=== PATIENT | female | born 1940 | race African-American/Black ===

== ENCOUNTER 2020-08-17 12:37 | Inpatient (IN) | payer MEDICARE, MEDICAID ==
[~2020-08-17] VITALS: Ht 160 cm; Wt 73.5 kg
[2020-08-17] MEDS ORDERED: ASPIRIN 81MG TABLET PO ONE (13:15)
[2020-08-17 14:54] LABS: BASOPHILS % 0.5 % (0.0-2.0); EOSINOPHILS % 3.4 % (0.0-5.0); HEMATOCRIT. 40.5 % (36.0-48.0); HEMOGLOBIN. 12.8 g/dL (12.0-16.0); MEAN CORPUSCULAR HEMOGLOBIN 29.5 pg (28.0-32.0); MONOCYTES % 11.7 % (2.0-8.0); NEUTROPHILS % 55.4 % (40.0-76.0); RED BLOOD CELL COUNT 4.35 mill/uL (4.2-5.4); RED CELL DISTRIBUTION WIDTH 15.5 % (11.6-14.6)
[2020-08-17 14:59] LABS: CHLORIDE 115 mEq/L (98-107)
[2020-08-17] MEDS ORDERED: NITROGLYCERIN 0.4MG TABLET SL SL PRN (15:30)
[2020-08-17 15:43] LABS: MEAN PLATELET VOLUME 8.8 fl (7.4-10.4); PLATELET 98 x1000/uL (130-400)
[2020-08-17 16:21] LABS: CLARITY URINE CLEAR (CLEAR); COLOR URINE YELLOW (YELLOW); KETONES URINE NEGATIVE (NEGATIVE); LEUKOCYTE ESTERASE URINE TRACE (NEGATIVE); NITRITE URINE POSITIVE (NEGATIVE); OCCULT BLOOD URINE TRACE (NEGATIVE); PROTEIN URINE NEGATIVE (NEGATIVE); SPECIFIC GRAVITY URINE 1.027 (1.005-1.030); UROBILINOGEN URINE 0.2 E.U./dL (0.2-1.0)
[2020-08-17] MEDS ORDERED: LEVOFLOXACIN 750MG PREMIX 150 ML IV ONE (16:45)
[2020-08-17] MEDS ORDERED: DIPHENHYDRAMINE 50MG/ML VIAL IV ONE (18:00)
[2020-08-17] MEDS ORDERED: SULFAMETHOXAZOLE/TRIMETHOPRIM 800/160MG TABLET PO ONE (18:00)
[2020-08-17] MEDS ORDERED: ONDANSETRON HCL 4MG/2ML INJ IV PRN (18:30)
[2020-08-17] MEDS: DOXYCYCLINE HYCLATE 100MG CAPSULE PO SCH (21:00)
[2020-08-17] MEDS ORDERED: HEPARIN 5000 UNITS/ML VIAL SUBCUT SCH (21:00)
[2020-08-17] MEDS: ACETAMINOPHEN 325MG TABLET PO PRN (21:30)
[2020-08-18] MEDS: TRAZODONE HCL 50MG TABLET PO PRN (02:00)
[2020-08-18 05:55] LABS: HEMOGLOBIN. 11.4 g/dL (12.0-16.0); MEAN CORPUSCULAR VOLUME 91.8 fL (81.0-99.0); MEAN PLATELET VOLUME 8.4 fl (7.4-10.4); PLATELET 138 x1000/uL (130-400); RED BLOOD CELL COUNT 3.81 mill/uL (4.2-5.4); RED CELL DISTRIBUTION WIDTH 14.8 % (11.6-14.6)
[2020-08-18 06:00] LABS: CHLORIDE 114 mEq/L (98-107)
[2020-08-18] MEDS ORDERED: SULFAMETHOXAZOLE/TRIMETHOPRIM 800/160MG TABLET PO SCH (09:00)
[2020-08-18] MEDS: DOXYCYCLINE HYCLATE 100MG CAPSULE PO SCH (09:59)
[2020-08-18 12:00] VITALS: BP 142/68
[2020-08-18 13:00] VITALS: BP 122/68
[2020-08-18] MEDS ORDERED: LORAZEPAM 0.5MG TABLET PO ONE (13:15)
[2020-08-18 13:16] LABS: PLATELET ESTIMATE NORMAL
[2020-08-18 16:00] VITALS: BP 122/74
[2020-08-18] MEDS ORDERED: TRAM100T34 MT (17:11)
[2020-08-18] MEDS ORDERED: FURO-151 MT (17:11)
[2020-08-18 20:00] VITALS: BP 127/79
[2020-08-18] MEDS: SULFAMETHOXAZOLE/TRIMETHOPRIM 800/160MG TABLET PO SCH (21:46)
[2020-08-18 22:19] VITALS: BP 135/74
[2020-08-19] VITALS (7 sets, daily range): BP systolic 115–137; BP diastolic 56–78
[2020-08-19] MEDS: TRAZODONE HCL 50MG TABLET PO PRN (00:17)
[2020-08-19] MEDS: ACETAMINOPHEN 325MG TABLET PO PRN ×2 (01:34→11:44)
[2020-08-19 07:52] LABS: CHLORIDE 112 mEq/L (98-107)
[2020-08-19 08:26] LABS: BASOPHILS % 0.7 % (0.0-2.0); EOSINOPHILS % 4.3 % (0.0-5.0); HEMATOCRIT. 38.1 % (36.0-48.0); HEMOGLOBIN. 12.2 g/dL (12.0-16.0); LYMPHOCYTES % 46.1 % (20.0-50.0); MEAN CORPUSCULAR HEMOGLOBIN 29.7 pg (28.0-32.0); MEAN CORPUSCULAR VOLUME 92.4 fL (81.0-99.0); MEAN PLATELET VOLUME 8.6 fl (7.4-10.4); MONOCYTES % 14.5 % (2.0-8.0); NEUTROPHILS % 34.4 % (40.0-76.0); PLATELET 142 x1000/uL (130-400); RED BLOOD CELL COUNT 4.12 mill/uL (4.2-5.4); RED CELL DISTRIBUTION WIDTH 15.1 % (11.6-14.6)
[2020-08-19] MEDS: SULFAMETHOXAZOLE/TRIMETHOPRIM 800/160MG TABLET PO SCH ×2 (08:40→20:37)
[2020-08-19] MEDS ORDERED: SULF1TAB44 PO (14:25)
[2020-08-19] MEDS: PNEUMOCOCCAL 23-VAL P-SAC VAC 0.5 ML IM ONE ×2 (15:00→18:25)
[2020-08-19] MEDS: INFLUENZA VACCINE 05/PF 0.5 ML VIAL IM ONE ×2 (15:00→18:24)
[2020-08-19] MEDS ORDERED: SODIUM POLYSTYRENE SULFONATE 15 G/60 ML BOT PO NR (15:30)
[2020-08-19] MEDS ORDERED: DOCU100T MT (15:35)
[2020-08-19] MEDS ORDERED: TRAM50TA3 MT (15:35)
[2020-08-19] MEDS ORDERED: SENN-257 MT (15:35)
[2020-08-19] MEDS ORDERED: FAMO40TA70 MT (15:35)
[2020-08-19] MEDS ORDERED: MOM MT (15:35)
[2020-08-19] MEDS ORDERED: MAGNESIUM HYDROXIDE 400MG/5ML 30ML UDC PO PRN (15:45)
[2020-08-19] MEDS ORDERED: SENNOSIDES/DOCUSATE SOD 8.6/50MG TABLET PO PRN (15:45)
[2020-08-19] MEDS ORDERED: BISACODYL 10MG SUPP PR PRN (15:45)
[2020-08-19] MEDS ORDERED: DOCUSATE SODIUM 100MG CAPSULE PO PRN (15:45)
[2020-08-19] MEDS ORDERED: MAGNESIUM CITRATE 300ML SOLUTION PO NR (16:00)
[2020-08-20] VITALS: BP 159/98
[2020-08-20] MEDS: TRAZODONE HCL 50MG TABLET PO PRN (01:25)
[2020-08-20 04:00] VITALS: BP 120/65
[2020-08-20 06:53] LABS: BASOPHILS % 0.5 % (0.0-2.0); EOSINOPHILS % 3.4 % (0.0-5.0); HEMATOCRIT. 36.7 % (36.0-48.0); LYMPHOCYTES % 41.5 % (20.0-50.0); MEAN CORPUSCULAR HEMOGLOBIN 30.1 pg (28.0-32.0); MEAN CORPUSCULAR VOLUME 92.1 fL (81.0-99.0); MONOCYTES % 13.3 % (2.0-8.0); NEUTROPHILS % 41.3 % (40.0-76.0); PLATELET 159 x1000/uL (130-400); RED BLOOD CELL COUNT 3.99 mill/uL (4.2-5.4); RED CELL DISTRIBUTION WIDTH 14.8 % (11.6-14.6)
[2020-08-20 07:03] LABS: CHLORIDE 111 mEq/L (98-107)
[2020-08-20 08:00] VITALS: BP 125/66
[2020-08-20] MEDS: SULFAMETHOXAZOLE/TRIMETHOPRIM 800/160MG TABLET PO SCH (08:39)
== END 2020-08-20 18:18 | disposition home health service (06) | DRG 720 ==
LOC: ER 12:37 → MICUSO 18:03 → 7EST 08-18 09:00 → 5EST 08-18 22:16
PROVIDERS: ADMIT Internal Medicine; ATTEND Internal Medicine
DX: A41.51 Sepsis due to Escherichia coli [E. coli] (principal); N39.0 Urinary tract infection, site not specified; I10 Essential (primary) hypertension; D64.9 Anemia, unspecified; B96.89 Other specified bacterial agents as the cause of diseases classified elsewhere; B96.20 Unspecified Escherichia coli [E. coli] as the cause of diseases classified elsewhere; E11.9 Type 2 diabetes mellitus without complications; I45.9 Conduction disorder, unspecified; E87.5 Hyperkalemia; Z16.12 Extended spectrum beta lactamase (ESBL) resistance; Z20.822 Contact with and (suspected) exposure to COVID-19; Z79.899 Other long term (current) drug therapy; Z88.5 Allergy status to narcotic agent; Z88.1 Allergy status to other antibiotic agents; D72.819 Decreased white blood cell count, unspecified
CPT/HCPCS: 36415; 71045; 80053; 81003; 83735; 83880; 84484; 85025; 87077; 87186; 87635; 90686; 90732; 93005; 97162; 99285; J1200; J1956

== ENCOUNTER 2020-08-30 03:07 | Inpatient (IN) | payer MEDICARE, MEDICAID ==
[~2020-08-30] VITALS: Ht 167.6 cm; Wt 78.0 kg
[~2020-08-30 03:07] MED LIST: DOCU100T MT; FAMO40TA70 MT; MOM MT; SENN-257 MT; SULF1TAB44 PO; TRAM50TA3 MT
[2020-08-30 06:50] LABS: CHLORIDE 115 mEq/L (98-107)
[2020-08-30 06:53] LABS: BASOPHILS % 0.6 % (0.0-2.0); EOSINOPHILS % 2.9 % (0.0-5.0); HEMATOCRIT. 41.5 % (36.0-48.0); HEMOGLOBIN. 13.4 g/dL (12.0-16.0); LYMPHOCYTES % 33.7 % (20.0-50.0); MEAN CORPUSCULAR VOLUME 92.5 fL (81.0-99.0); MEAN PLATELET VOLUME 9.2 fl (7.4-10.4); MONOCYTES % 8.7 % (2.0-8.0); NEUTROPHILS % 54.1 % (40.0-76.0); PLATELET 207 x1000/uL (130-400); RED BLOOD CELL COUNT 4.48 mill/uL (4.2-5.4)
[2020-08-30] MEDS ORDERED: ASPIRIN 325MG EC TABLET PO ONE (07:00)
[2020-08-30] MEDS ORDERED: ASPIRIN 81MG EC TABLET PO ONE (07:15)
[2020-08-30] MEDS ORDERED: CLONIDINE 0.1MG TABLET PO PRN (08:45)
[2020-08-30] MEDS ORDERED: DEXTROSE 50% WATER 50ML SYRINGE IV PRN (08:45)
[2020-08-30] MEDS ORDERED: GUAIFENESIN 200MG/10ML SUGAR FREE UDC PO PRN (08:45)
[2020-08-30] MEDS ORDERED: NITROGLYCERIN 0.4MG TABLET SL SL PRN (08:45)
[2020-08-30] MEDS ORDERED: TRAMADOL 50MG TABLET PO PRN (08:45)
[2020-08-30] MEDS ORDERED: MAGNESIUM/ALUMINUM HYDROXIDE/SIMETHICONE 30ML UDC PO PRN (08:45)
[2020-08-30] MEDS ORDERED: IPRATROPIUM/ALBUTEROL 0.5-3(2.5)MG/3ML NEB NEB PRN (08:45)
[2020-08-30] MEDS ORDERED: ONDANSETRON HCL 4MG/2ML INJ IV PRN (08:45)
[2020-08-30] MEDS ORDERED: ACETAMINOPHEN 325MG TABLET PO PRN ×2 (08:45)
[2020-08-30] MEDS: ZINC SULFATE 220 MG ( 50 ) CAPSULE PO SCH (09:00)
[2020-08-30] MEDS: ASCORBIC ACID 500 MG TABLET PO SCH ×2 (09:53→21:42)
[2020-08-30] MEDS: METOPROLOL TARTRATE 25MG TABLET PO SCH ×2 (09:53→21:43)
[2020-08-30] MEDS: ASPIRIN 325MG EC TABLET PO SCH (09:53)
[2020-08-30] MEDS: BLOOD SUGAR DIAGNOSTIC STRIP TEST SCH ×4 (09:53→21:43)
[2020-08-30] MEDS: ENOXAPARIN 40MG/0.4ML SYR SUBCUT SCH (09:53)
[2020-08-30] MEDS: FAMOTIDINE 20MG TABLET PO SCH (09:53)
[2020-08-30] MEDS: INSULIN LISPRO 100 UNITS/ML SUBCUT SCH ×3 (13:20→21:00)
[2020-08-30 15:26] LABS: CREATINE KINASE 133 IU/L (26-192)
[2020-08-30 15:27] LABS: CREATINE KINASE MB FRACTION 2.9 ng/mL (0.5-3.6)
[2020-08-30] MEDS: SODIUM CHLORIDE 0.9% 1,000 ML IV SCH ×2 (15:41→23:21)
[2020-08-30 16:30] VITALS: BP 119/74
[2020-08-30 18:15] VITALS: BP 119/74
[2020-08-30 20:00] VITALS: BP 128/85
[2020-08-30 20:02] LABS: *AMPHETAMINES SCREEN URINE NEGATIVE (NEGATIVE); *BARBITURATES SCREEN URINE NEGATIVE (NEGATIVE); *BENZODIAZEPINES SCREEN URINE NEGATIVE (NEGATIVE)
[2020-08-30 20:03] LABS: *COCAINE SCREEN URINE NEGATIVE (NEGATIVE); METHADONE URINE SCREEN NEGATIVE (NEGATIVE); OPIATES URINE SCREEN NEGATIVE (NEGATIVE)
[2020-08-30 20:04] LABS: CANNABINOID URINE SCREEN NEGATIVE (NEGATIVE); PHENCYCLIDINE URINE SCREEN NEGATIVE (NEGATIVE)
[2020-08-30] MEDS ORDERED: *PATIENT'S OWN MEDICATION STORAGE XX SCH (21:15)
[2020-08-30 23:59] LABS: CREATINE KINASE 145 IU/L (26-192)
[2020-08-31] VITALS (11 sets, daily range): BP systolic 104–129; BP diastolic 47–79
[2020-08-31] MEDS: ZOLPIDEM TARTRATE 5MG TABLET PO PRN ×2 (00:05→21:56)
[2020-08-31] MEDS ORDERED: INFLUENZA VACCINE 05/PF 0.5 ML VIAL IM ONE (06:00)
[2020-08-31] MEDS ORDERED: PNEUMOCOCCAL 23-VAL P-SAC VAC 0.5 ML IM ONE (06:00)
[2020-08-31] MEDS: BLOOD SUGAR DIAGNOSTIC STRIP TEST SCH ×4 (06:40→21:57)
[2020-08-31] MEDS: INSULIN LISPRO 100 UNITS/ML SUBCUT SCH ×4 (07:20→21:00)
[2020-08-31] MEDS: ENOXAPARIN 40MG/0.4ML SYR SUBCUT SCH (09:00)
[2020-08-31] MEDS: ZINC SULFATE 220 MG ( 50 ) CAPSULE PO SCH (09:28)
[2020-08-31] MEDS: FAMOTIDINE 20MG TABLET PO SCH (09:28)
[2020-08-31] MEDS: DOCUSATE SODIUM 100MG CAPSULE PO PRN (09:28)
[2020-08-31] MEDS: ASPIRIN 325MG EC TABLET PO SCH (09:28)
[2020-08-31] MEDS: ASCORBIC ACID 500 MG TABLET PO SCH ×2 (09:29→20:58)
[2020-08-31] MEDS: METOPROLOL TARTRATE 25MG TABLET PO SCH ×2 (09:30→21:00)
[2020-08-31 10:11] LABS: BASOPHILS % 0.9 % (0.0-2.0); EOSINOPHILS % 4.4 % (0.0-5.0); HEMATOCRIT. 34.2 % (36.0-48.0); HEMOGLOBIN. 11.4 g/dL (12.0-16.0); LYMPHOCYTES % 34.8 % (20.0-50.0); MEAN CORPUSCULAR HEMOGLOBIN 30.4 pg (28.0-32.0); MEAN CORPUSCULAR VOLUME 91.6 fL (81.0-99.0); MEAN PLATELET VOLUME 8.3 fl (7.4-10.4); MONOCYTES % 14.2 % (2.0-8.0); NEUTROPHILS % 45.7 % (40.0-76.0); PLATELET 160 x1000/uL (130-400); RED BLOOD CELL COUNT 3.73 mill/uL (4.2-5.4); RED CELL DISTRIBUTION WIDTH 15.2 % (11.6-14.6)
[2020-08-31 10:27] LABS: CHLORIDE 114 mEq/L (98-107)
[2020-08-31 16:09] LABS: CLARITY URINE CLEAR (CLEAR); COLOR URINE YELLOW (YELLOW); KETONES URINE NEGATIVE (NEGATIVE); LEUKOCYTE ESTERASE URINE 1+ (NEGATIVE); NITRITE URINE NEGATIVE (NEGATIVE); OCCULT BLOOD URINE NEGATIVE (NEGATIVE); PH URINE 5.5 (4.5-8.0); PROTEIN URINE NEGATIVE (NEGATIVE); UROBILINOGEN URINE 0.2 E.U./dL (0.2-1.0)
[2020-09-01] VITALS (10 sets, daily range): BP systolic 103–134; BP diastolic 57–84
[2020-09-01] MEDS: SODIUM CHLORIDE 0.9% 1,000 ML IV SCH ×2 (05:45→16:31)
[2020-09-01] MEDS: BLOOD SUGAR DIAGNOSTIC STRIP TEST SCH ×4 (06:22→21:39)
[2020-09-01] MEDS: INSULIN LISPRO 100 UNITS/ML SUBCUT SCH ×4 (06:22→21:00)
[2020-09-01] MEDS: METOPROLOL TARTRATE 25MG TABLET PO SCH ×2 (09:00→21:00)
[2020-09-01 09:10] LABS: EOSINOPHILS % 4.3 % (0.0-5.0); HEMATOCRIT. 34.4 % (36.0-48.0); HEMOGLOBIN. 11.4 g/dL (12.0-16.0); MEAN CORPUSCULAR HEMOGLOBIN 30.2 pg (28.0-32.0); MEAN CORPUSCULAR VOLUME 91.3 fL (81.0-99.0); NEUTROPHILS % 51.7 % (40.0-76.0); PLATELET 155 x1000/uL (130-400); RED BLOOD CELL COUNT 3.76 mill/uL (4.2-5.4); RED CELL DISTRIBUTION WIDTH 15.3 % (11.6-14.6)
[2020-09-01] MEDS: ENOXAPARIN 40MG/0.4ML SYR SUBCUT SCH (09:34)
[2020-09-01] MEDS: ZINC SULFATE 220 MG ( 50 ) CAPSULE PO SCH (09:34)
[2020-09-01] MEDS: FAMOTIDINE 20MG TABLET PO SCH (09:34)
[2020-09-01] MEDS: ASCORBIC ACID 500 MG TABLET PO SCH ×2 (09:34→21:38)
[2020-09-01] MEDS: ASPIRIN 325MG EC TABLET PO SCH (09:34)
[2020-09-01] MEDS: MEROPENEM 500 MG in SODIUM CHLORIDE 0.9% 50 ML IV SCH ×3 (12:00→22:00)
[2020-09-01] MEDS ORDERED: SODIUM BICARBONATE 4% (2.4MEQ) 5ML VIAL IV ONE (12:40)
[2020-09-01] MEDS ORDERED: LIDOCAINE HCL 1% 20ML VIAL (Pyxis) INJ ONE (12:40)
[2020-09-01] MEDS: KETOROLAC 15MG/ML VIAL IV PRN (16:33)
[2020-09-02] VITALS: BP 128/101
[2020-09-02] MEDS: ZOLPIDEM TARTRATE 5MG TABLET PO PRN ×2 (00:50→22:27)
[2020-09-02] MEDS: SODIUM CHLORIDE 0.9% 1,000 ML IV SCH ×2 (03:27→21:45)
[2020-09-02 04:00] VITALS: BP 114/69
[2020-09-02] MEDS: MEROPENEM 500 MG in SODIUM CHLORIDE 0.9% 50 ML IV SCH ×3 (05:59→22:28)
[2020-09-02] MEDS: BLOOD SUGAR DIAGNOSTIC STRIP TEST SCH ×5 (05:59→21:00)
[2020-09-02] MEDS: INSULIN LISPRO 100 UNITS/ML SUBCUT SCH ×4 (07:20→21:00)
[2020-09-02] MEDS: METOPROLOL TARTRATE 25MG TABLET PO SCH ×2 (09:00→20:50)
[2020-09-02] MEDS: FAMOTIDINE 20MG TABLET PO SCH (09:34)
[2020-09-02] MEDS: ASPIRIN 325MG EC TABLET PO SCH (09:35)
[2020-09-02] MEDS: DOCUSATE SODIUM 100MG CAPSULE PO PRN (09:35)
[2020-09-02] MEDS: ZINC SULFATE 220 MG ( 50 ) CAPSULE PO SCH (09:36)
[2020-09-02] MEDS: ASCORBIC ACID 500 MG TABLET PO SCH ×2 (09:36→20:50)
[2020-09-02] MEDS: ENOXAPARIN 40MG/0.4ML SYR SUBCUT SCH (09:37)
[2020-09-02 18:11] VITALS: BP 142/58
[2020-09-02 20:00] VITALS: BP 112/42
[2020-09-03] VITALS: BP 108/60
[2020-09-03] MEDS: KETOROLAC 15MG/ML VIAL IV PRN (00:39)
[2020-09-03 04:00] VITALS: BP 111/73
[2020-09-03] MEDS: MEROPENEM 500 MG in SODIUM CHLORIDE 0.9% 50 ML IV SCH ×2 (05:56→14:11)
[2020-09-03] MEDS: INSULIN LISPRO 100 UNITS/ML SUBCUT SCH ×2 (06:57→11:45)
[2020-09-03] MEDS: SODIUM CHLORIDE 0.9% 1,000 ML IV SCH (07:45)
[2020-09-03 08:29] VITALS: BP 151/86
[2020-09-03] MEDS: BLOOD SUGAR DIAGNOSTIC STRIP TEST SCH ×2 (09:00→13:09)
[2020-09-03] MEDS: ZINC SULFATE 220 MG ( 50 ) CAPSULE PO SCH (09:48)
[2020-09-03] MEDS: ASPIRIN 325MG EC TABLET PO SCH (09:48)
[2020-09-03] MEDS: FAMOTIDINE 20MG TABLET PO SCH (09:48)
[2020-09-03] MEDS: METOPROLOL TARTRATE 25MG TABLET PO SCH (09:48)
[2020-09-03] MEDS: ASCORBIC ACID 500 MG TABLET PO SCH (09:48)
[2020-09-03] MEDS: ENOXAPARIN 40MG/0.4ML SYR SUBCUT SCH (09:48)
[2020-09-03 15:09] VITALS: BP 151/86
== END 2020-09-03 16:05 | disposition home or self-care (01) | DRG 52 ==
LOC: ER 03:07 → 3WST 07:49 → EDBEDREQTM 07:57 → EDBEDREQ 07:57 → ENRESERV 14:42 → 4WST 09-02 12:35
PROVIDERS: ADMIT Internal Medicine; ATTEND Internal Medicine
PROC: 02HV33Z Insertion of Infusion Device into Superior Vena Cava, Percutaneous Approach (ICD-10-PCS; principal; 2020-09-01)
PROC: B548ZZA Ultrasonography of Superior Vena Cava, Guidance (ICD-10-PCS; 2020-09-01)
DX: G92 Toxic encephalopathy (principal); M94.0 Chondrocostal junction syndrome [Tietze]; E83.52 Hypercalcemia; I10 Essential (primary) hypertension; K21.9 Gastro-esophageal reflux disease without esophagitis; N39.0 Urinary tract infection, site not specified; B96.20 Unspecified Escherichia coli [E. coli] as the cause of diseases classified elsewhere; Z16.12 Extended spectrum beta lactamase (ESBL) resistance; Z88.5 Allergy status to narcotic agent; Z88.0 Allergy status to penicillin; Z79.899 Other long term (current) drug therapy
CPT/HCPCS: 36415; 71045; 76937; 80053; 80061; 80305; 81003; 82550; 82553; 82962; 83036; 83735; 83880; 84100; 84484; 85025; 87077; 87186; 90686; 90732; 93005; 93306; 93970; 99285; C1725; J1650; J1885; J2185; J3490

== ENCOUNTER 2021-03-20 10:45 | Inpatient (IN) | payer MEDICARE, MEDICAID ==
[~2021-03-20] VITALS: Ht 160 cm; Wt 70.4 kg
[2021-03-20 11:59] LABS: BASOPHILS % 0.3 % (0.0-2.0); EOSINOPHILS % 3.9 % (0.0-5.0); HEMATOCRIT. 34.8 % (36.0-48.0); HEMOGLOBIN. 11.3 g/dL (12.0-16.0); LYMPHOCYTES % 33.1 % (20.0-50.0); MEAN CORPUSCULAR HEMOGLOBIN 31.1 pg (28.0-32.0); MEAN CORPUSCULAR VOLUME 95.4 fL (81.0-99.0); MEAN PLATELET VOLUME 8.8 fl (7.4-10.4); MONOCYTES % 10.1 % (2.0-8.0); NEUTROPHILS % 52.6 % (40.0-76.0); PLATELET 196 x1000/uL (130-400); RED BLOOD CELL COUNT 3.65 mill/uL (4.2-5.4); RED CELL DISTRIBUTION WIDTH 16.3 % (11.6-14.6)
[2021-03-20] MEDS ORDERED: LORAZEPAM 2MG/ML CPJ IV ONE ×2 (12:00→13:00)
[2021-03-20 12:02] LABS: CHLORIDE 115 mEq/L (98-107)
[2021-03-20 12:08] LABS: ETHANOL BLOOD < 10 mg/dL
[2021-03-20] MEDS ORDERED: SODIUM CHLORIDE 0.9% 1,000 ML IV ONE (13:00)
[2021-03-20] MEDS ORDERED: GENTAMICIN SULFATE 80 MG in SODIUM CHLORIDE 0.9% 100 ML IV STA (14:24)
[2021-03-20] MEDS ORDERED: ASPIRIN 81MG TABLET PO ONE (14:30)
[2021-03-20] MEDS ORDERED: GUAIFENESIN 200MG/10ML SUGAR FREE UDC PO PRN (14:45)
[2021-03-20] MEDS ORDERED: ONDANSETRON HCL 4MG/2ML INJ IV PRN (14:45)
[2021-03-20] MEDS ORDERED: MAGNESIUM/ALUMINUM HYDROXIDE/SIMETHICONE 30ML UDC PO PRN (14:45)
[2021-03-20] MEDS ORDERED: ACETAMINOPHEN 325MG TABLET PO PRN ×2 (14:45)
[2021-03-20] MEDS ORDERED: CLONIDINE 0.1MG TABLET PO PRN (14:45)
[2021-03-20] MEDS ORDERED: NITROGLYCERIN 0.4MG TABLET SL SL PRN (14:45)
[2021-03-20] MEDS ORDERED: IPRATROPIUM/ALBUTEROL 0.5-3(2.5)MG/3ML NEB NEB PRN (14:45)
[2021-03-20 15:22] LABS: TOTAL IRON BINDING CAPACITY 289 ug/dL (250-450)
[2021-03-20] MEDS ORDERED: ENOXAPARIN 40MG/0.4ML SYR SUBCUT SCH (16:00)
[2021-03-20 16:01] LABS: FOLIC ACID (FOLATE) SERUM 8.5 ng/mL (>5.38)
[2021-03-20 20:00] VITALS: BP 124/58
[2021-03-20] MEDS: FAMOTIDINE 20MG TABLET PO SCH (21:09)
[2021-03-20] MEDS: ZOLPIDEM TARTRATE 5MG TABLET PO PRN (21:10)
[2021-03-20] MEDS: ASCORBIC ACID 500 MG TABLET PO SCH (21:10)
[2021-03-21] VITALS: BP_SYST 120; BP_SYST 145; BP_DIAS 62; BP_DIAS 81
[2021-03-21 01:02] LABS: CREATINE KINASE 96 IU/L (26-192)
[2021-03-21] MEDS ORDERED: ZOLP10TA2 MT (02:44)
[2021-03-21] MEDS ORDERED: FERR-71 MT (02:44)
[2021-03-21 04:00] VITALS: BP 141/69
[2021-03-21 08:00] VITALS: BP 142/114
[2021-03-21 09:38] LABS: CLARITY URINE CLOUDY (CLEAR); COLOR URINE YELLOW (YELLOW); KETONES URINE NEGATIVE (NEGATIVE); LEUKOCYTE ESTERASE URINE 2+ (NEGATIVE); NITRITE URINE NEGATIVE (NEGATIVE); OCCULT BLOOD URINE TRACE (NEGATIVE); PROTEIN URINE NEGATIVE (NEGATIVE); SPECIFIC GRAVITY URINE 1.016 (1.005-1.030)
[2021-03-21 09:53] LABS: *AMPHETAMINES SCREEN URINE NEGATIVE (NEGATIVE); *BARBITURATES SCREEN URINE NEGATIVE (NEGATIVE); *BENZODIAZEPINES SCREEN URINE NEGATIVE (NEGATIVE); *COCAINE SCREEN URINE NEGATIVE (NEGATIVE)
[2021-03-21 09:54] LABS: METHADONE URINE SCREEN NEGATIVE (NEGATIVE); OPIATES URINE SCREEN NEGATIVE (NEGATIVE); PHENCYCLIDINE URINE SCREEN NEGATIVE (NEGATIVE)
[2021-03-21] MEDS: ASPIRIN 325MG EC TABLET PO SCH (09:54)
[2021-03-21] MEDS: CHOLECALCIFEROL (D3) 1000 UNIT TABLET PO SCH (09:54)
[2021-03-21] MEDS: ASCORBIC ACID 500 MG TABLET PO SCH ×2 (09:54→21:54)
[2021-03-21 09:55] LABS: CANNABINOID URINE SCREEN NEGATIVE (NEGATIVE)
[2021-03-21] MEDS: ZINC SULFATE 220 MG ( 50 ) CAPSULE PO SCH (10:09)
[2021-03-21 12:00] VITALS: BP 117/66
[2021-03-21 15:26] LABS: BASOPHILS % 0.5 % (0.0-2.0); EOSINOPHILS % 4.2 % (0.0-5.0); HEMATOCRIT. 31.6 % (36.0-48.0); HEMOGLOBIN. 10.6 g/dL (12.0-16.0); LYMPHOCYTES % 21.1 % (20.0-50.0); MEAN CORPUSCULAR HEMOGLOBIN 31.5 pg (28.0-32.0); MEAN CORPUSCULAR VOLUME 93.7 fL (81.0-99.0); MEAN PLATELET VOLUME 8.7 fl (7.4-10.4); MONOCYTES % 9.5 % (2.0-8.0); NEUTROPHILS % 64.7 % (40.0-76.0); PLATELET 175 x1000/uL (130-400); RED BLOOD CELL COUNT 3.37 mill/uL (4.2-5.4); RED CELL DISTRIBUTION WIDTH 15.6 % (11.6-14.6)
[2021-03-21 15:32] LABS: CHLORIDE 115 mEq/L (98-107)
[2021-03-21 15:39] LABS: PHOSPHORUS 2.3 mg/dL (2.5-4.9)
[2021-03-21 15:42] LABS: CREATINE KINASE 104 IU/L (26-192)
[2021-03-21 15:46] LABS: CREATINE KINASE MB FRACTION 2.5 ng/mL (0.5-3.6)
[2021-03-21 16:00] VITALS: BP 116/57
[2021-03-21] MEDS: ENOXAPARIN 40MG/0.4ML SYR SUBCUT SCH (17:06)
[2021-03-21] MEDS: MEROPENEM 1,000 MG in SODIUM CHLORIDE 0.9% 100 ML IV SCH (17:06)
[2021-03-21 20:00] VITALS: BP 109/56
[2021-03-21] MEDS: FAMOTIDINE 20MG TABLET PO SCH (21:54)
[2021-03-22] VITALS: BP 115/51
[2021-03-22] MEDS: MEROPENEM 1,000 MG in SODIUM CHLORIDE 0.9% 100 ML IV SCH ×2 (03:11→15:54)
[2021-03-22] MEDS: KETOROLAC 15MG/ML VIAL IV PRN ×2 (03:11→20:17)
[2021-03-22 04:00] VITALS: BP 113/60
[2021-03-22] MEDS: ZOLPIDEM TARTRATE 5MG TABLET PO PRN (04:07)
[2021-03-22 08:00] VITALS: BP 141/76
[2021-03-22] MEDS: ZINC SULFATE 220 MG ( 50 ) CAPSULE PO SCH (09:23)
[2021-03-22] MEDS: ASPIRIN 325MG EC TABLET PO SCH (09:23)
[2021-03-22] MEDS: ENOXAPARIN 40MG/0.4ML SYR SUBCUT SCH (09:23)
[2021-03-22] MEDS: CHOLECALCIFEROL (D3) 1000 UNIT TABLET PO SCH (09:23)
[2021-03-22] MEDS: ASCORBIC ACID 500 MG TABLET PO SCH ×2 (09:23→20:16)
[2021-03-22] MEDS: DOCUSATE SODIUM 100MG CAPSULE PO PRN ×2 (09:37→20:16)
[2021-03-22 12:00] VITALS: BP 124/65
[2021-03-22 16:00] VITALS: BP_SYST 112; BP_SYST 124; BP_DIAS 62; BP_DIAS 65
[2021-03-22 20:00] VITALS: BP_SYST 109; BP_SYST 135; BP_DIAS 50; BP_DIAS 71
[2021-03-22] MEDS: FAMOTIDINE 20MG TABLET PO SCH (20:16)
[2021-03-23] VITALS: BP 140/68
[2021-03-23] MEDS: ZOLPIDEM TARTRATE 5MG TABLET PO PRN (02:58)
[2021-03-23] MEDS: MEROPENEM 1,000 MG in SODIUM CHLORIDE 0.9% 100 ML IV SCH ×2 (03:10→15:36)
[2021-03-23] MEDS: KETOROLAC 15MG/ML VIAL IV PRN (03:19)
[2021-03-23 04:00] VITALS: BP 123/57
[2021-03-23] MEDS: ZINC SULFATE 220 MG ( 50 ) CAPSULE PO SCH (11:11)
[2021-03-23] MEDS: ASPIRIN 325MG EC TABLET PO SCH (11:11)
[2021-03-23] MEDS: CHOLECALCIFEROL (D3) 1000 UNIT TABLET PO SCH (11:12)
[2021-03-23] MEDS: ASCORBIC ACID 500 MG TABLET PO SCH ×2 (11:13→21:35)
[2021-03-23] MEDS: TRAMADOL 50MG TABLET PO PRN ×2 (11:13→13:43)
[2021-03-23] MEDS: ENOXAPARIN 40MG/0.4ML SYR SUBCUT SCH (11:14)
[2021-03-23 17:00] VITALS: BP 130/60
[2021-03-23 20:00] VITALS: BP 109/50
[2021-03-23] MEDS: FAMOTIDINE 20MG TABLET PO SCH (21:35)
[2021-03-24] VITALS: BP 128/59
[2021-03-24 04:00] VITALS: BP 117/59
[2021-03-24 08:00] VITALS: BP 129/67
[2021-03-24] MEDS: ASPIRIN 325MG EC TABLET PO SCH (08:59)
[2021-03-24] MEDS: CHOLECALCIFEROL (D3) 1000 UNIT TABLET PO SCH (08:59)
[2021-03-24] MEDS: ZINC SULFATE 220 MG ( 50 ) CAPSULE PO SCH (08:59)
[2021-03-24] MEDS: ASCORBIC ACID 500 MG TABLET PO SCH ×2 (08:59→21:39)
[2021-03-24] MEDS: ENOXAPARIN 40MG/0.4ML SYR SUBCUT SCH ×4 (08:59→09:08)
[2021-03-24 16:00] VITALS: BP 114/72
[2021-03-24 20:00] VITALS: BP 106/55
[2021-03-24] MEDS: FAMOTIDINE 20MG TABLET PO SCH (21:39)
[2021-03-24] MEDS: ZOLPIDEM TARTRATE 5MG TABLET PO PRN (21:45)
[2021-03-25] VITALS: BP 114/49
[2021-03-25 04:00] VITALS: BP 111/72
[2021-03-25 08:00] VITALS: BP 115/65
[2021-03-25] MEDS: ZINC SULFATE 220 MG ( 50 ) CAPSULE PO SCH (08:19)
[2021-03-25] MEDS: CHOLECALCIFEROL (D3) 1000 UNIT TABLET PO SCH (08:19)
[2021-03-25] MEDS: ASPIRIN 325MG EC TABLET PO SCH (08:19)
[2021-03-25] MEDS: ENOXAPARIN 40MG/0.4ML SYR SUBCUT SCH ×2 (08:19→09:00)
[2021-03-25] MEDS: ASCORBIC ACID 500 MG TABLET PO SCH (08:19)
[2021-03-25 09:40] VITALS: BP 128/74
[2021-03-25 12:00] VITALS: BP 128/74
== END 2021-03-25 12:09 | disposition home health service (06) | DRG 52 ==
LOC: ER 10:58 → 8WST 14:26 → SUPCPDRO 14:41 → ENRESERV 17:36
PROVIDERS: ADMIT Internal Medicine; ATTEND Internal Medicine
DX: G92 Toxic encephalopathy (principal); D63.8 Anemia in other chronic diseases classified elsewhere; N39.0 Urinary tract infection, site not specified; F29 Unspecified psychosis not due to a substance or known physiological condition; E11.9 Type 2 diabetes mellitus without complications; E83.52 Hypercalcemia; B96.20 Unspecified Escherichia coli [E. coli] as the cause of diseases classified elsewhere; I10 Essential (primary) hypertension; M94.0 Chondrocostal junction syndrome [Tietze]; K59.00 Constipation, unspecified; Z16.12 Extended spectrum beta lactamase (ESBL) resistance; S70.319A Abrasion, unspecified thigh, initial encounter; X58.XXXA Exposure to other specified factors, initial encounter; Z87.440 Personal history of urinary (tract) infections; Z88.0 Allergy status to penicillin; Z88.5 Allergy status to narcotic agent; Y93.89 Activity, other specified; Y92.89 Other specified places as the place of occurrence of the external cause; Y99.8 Other external cause status
CPT/HCPCS: 36415; 71045; 80053; 80305; 80307; 80320; 80329; 81003; 82140; 82550; 82553; 82607; 82728; 82746; 83540; 83550; 83615; 83735; 83880; 84100; 84145; 84484; 85025; 85379; 87077; 87186; 93005; 99285; C1893; J1580; J1650; J1885; J2060; J2185; J7030; J7040; J7050; G0480

== ENCOUNTER 2021-04-19 22:40 | Emergency (ER) | payer MEDICARE, MEDICAID ==
[~2021-04-19] VITALS: Ht 160 cm; Wt 89.0 kg
[~2021-04-19 22:40] MED LIST changes: +FERR-71 MT; +ZOLP10TA2 MT
[2021-04-19 23:55] LABS: BASOPHILS % 0.6 % (0.0-2.0); EOSINOPHILS % 4.9 % (0.0-5.0); HEMATOCRIT. 36.4 % (36.0-48.0); HEMOGLOBIN. 12.3 g/dL (12.0-16.0); LYMPHOCYTES % 30.1 % (20.0-50.0); MEAN CORPUSCULAR HEMOGLOBIN 31.8 pg (28.0-32.0); MEAN CORPUSCULAR VOLUME 94.4 fL (81.0-99.0); MEAN PLATELET VOLUME 7.9 fl (7.4-10.4); MONOCYTES % 12.7 % (2.0-8.0); NEUTROPHILS % 51.7 % (40.0-76.0); PLATELET 196 x1000/uL (130-400); RED BLOOD CELL COUNT 3.86 mill/uL (4.2-5.4); RED CELL DISTRIBUTION WIDTH 16.4 % (11.6-14.6)
[2021-04-19 23:56] LABS: CLARITY URINE CLOUDY (CLEAR); COLOR URINE YELLOW (YELLOW); KETONES URINE TRACE (NEGATIVE); LEUKOCYTE ESTERASE URINE 1+ (NEGATIVE); NITRITE URINE NEGATIVE (NEGATIVE); OCCULT BLOOD URINE 1+ (NEGATIVE); PROTEIN URINE 1+ (NEGATIVE); SPECIFIC GRAVITY URINE 1.029 (1.005-1.030)
[2021-04-20 00:15] LABS: CHLORIDE 112 mEq/L (98-107)
[2021-04-20 00:19] LABS: ETHANOL BLOOD < 10 mg/dL
[2021-04-20 00:23] LABS: *AMPHETAMINES SCREEN URINE NEGATIVE (NEGATIVE); *BARBITURATES SCREEN URINE NEGATIVE (NEGATIVE); *BENZODIAZEPINES SCREEN URINE NEGATIVE (NEGATIVE)
[2021-04-20 00:24] LABS: *COCAINE SCREEN URINE NEGATIVE (NEGATIVE); CANNABINOID URINE SCREEN NEGATIVE (NEGATIVE); METHADONE URINE SCREEN NEGATIVE (NEGATIVE); OPIATES URINE SCREEN NEGATIVE (NEGATIVE); PHENCYCLIDINE URINE SCREEN NEGATIVE (NEGATIVE)
[2021-04-20] MEDS ORDERED: CEPHALEXIN 250MG CAPSULE PO SCH (01:30)
[2021-04-20] MEDS ORDERED: KETOROLAC 60MG/2ML VIAL IM ONE (01:45)
[2021-04-20] MEDS ORDERED: CEPH500C2 MT (03:31)
[2021-04-20 11:55] VITALS: BP 114/65
== END 2021-04-20 12:17 | disposition home or self-care (01) ==
LOC: ER 22:40
DX: N39.0 Urinary tract infection, site not specified (principal); R53.1 Weakness; I10 Essential (primary) hypertension; Z88.0 Allergy status to penicillin; Z88.6 Allergy status to analgesic agent; Z87.440 Personal history of urinary (tract) infections
CPT/HCPCS: 36415; 71045; 80053; 80305; 80320; 81003; 83880; 84484; 85025; 93005; 96372; 99285; J1885; G0480

== ENCOUNTER 2021-05-31 03:00 | Emergency (ER) | payer MEDICARE, MEDICAID ==
[~2021-05-31] VITALS: Ht 160 cm; Wt 54.0 kg
[~2021-05-31 03:00] MED LIST changes: +CEPH500C2 MT
[2021-05-31 03:06] VITALS: BP 144/66
[2021-05-31 06:47] LABS: BASOPHILS % 0.9 % (0.0-2.0); HEMATOCRIT. 42.2 % (36.0-48.0); LYMPHOCYTES % 32.8 % (20.0-50.0); MEAN CORPUSCULAR VOLUME 96.6 fL (81.0-99.0); MEAN PLATELET VOLUME 8.6 fl (7.4-10.4); MONOCYTES % 14.6 % (2.0-8.0); NEUTROPHILS % 46.7 % (40.0-76.0); PLATELET 189 x1000/uL (130-400); RED BLOOD CELL COUNT 4.37 mill/uL (4.2-5.4); RED CELL DISTRIBUTION WIDTH 15.9 % (11.6-14.6)
== END 2021-05-31 07:51 | disposition left against medical advice (07) ==
LOC: ER 03:00
DX: R07.89 Other chest pain (principal); I10 Essential (primary) hypertension; Z79.899 Other long term (current) drug therapy; Z88.0 Allergy status to penicillin; Z88.5 Allergy status to narcotic agent; Z98.890 Other specified postprocedural states
CPT/HCPCS: 36415; 71045; 85025; 99284

== ENCOUNTER 2021-06-27 00:56 | Emergency (ER) | payer MEDICARE, MEDICAID ==
[~2021-06-27] VITALS: Ht 160 cm; Wt 72.0 kg
[2021-06-27 00:59] VITALS: BP 164/90
[2021-06-27] MEDS ORDERED: ACETAMINOPHEN 325MG TABLET PO ONE (01:15)
[2021-06-27] MEDS ORDERED: ACET-2708 MT (02:07)
== END 2021-06-27 04:43 | disposition home or self-care (01) ==
LOC: ER 00:56
DX: M25.511 Pain in right shoulder (principal); I10 Essential (primary) hypertension; F32.A Depression, unspecified; F20.9 Schizophrenia, unspecified; Z79.899 Other long term (current) drug therapy; Z88.5 Allergy status to narcotic agent; Z88.0 Allergy status to penicillin; Z88.8 Allergy status to other drugs, medicaments and biological substances
CPT/HCPCS: 73030; 99283

== ENCOUNTER 2021-10-24 05:12 | Emergency (ER) | payer MEDICARE, MEDICAID ==
[~2021-10-24] VITALS: Ht 167.6 cm; Wt 70.0 kg
[~2021-10-24 05:12] MED LIST changes: +ACET-2708 MT
[2021-10-24 05:46] LABS: BASOPHILS % 0.6 % (0.0-2.0); EOSINOPHILS % 3.3 % (0.0-5.0); HEMATOCRIT. 39.9 % (36.0-48.0); HEMOGLOBIN. 13.1 g/dL (12.0-16.0); LYMPHOCYTES % 29.7 % (20.0-50.0); MEAN CORPUSCULAR VOLUME 94.8 fL (81.0-99.0); MEAN PLATELET VOLUME 8.3 fl (7.4-10.4); MONOCYTES % 12.7 % (2.0-8.0); NEUTROPHILS % 53.7 % (40.0-76.0); PLATELET 170 x1000/uL (130-400); RED BLOOD CELL COUNT 4.21 mill/uL (4.2-5.4); RED CELL DISTRIBUTION WIDTH 14.1 % (11.6-14.6)
[2021-10-24 05:53] LABS: CHLORIDE 111 mEq/L (98-107)
[2021-10-24] MEDS ORDERED: ACETAMINOPHEN 325MG TABLET PO ONE (07:00)
[2021-10-24] MEDS ORDERED: TOPUD PO (09:57)
[2021-10-24 10:17] VITALS: BP 144/74
== END 2021-10-24 12:32 | disposition home or self-care (01) ==
LOC: ER 05:12
DX: M79.18 Myalgia, other site (principal); I10 Essential (primary) hypertension; F03.90 Unspecified dementia, unspecified severity, without behavioral disturbance, psychotic disturbance, mood disturbance, and anxiety; Z88.5 Allergy status to narcotic agent; Z88.0 Allergy status to penicillin
CPT/HCPCS: 36415; 71045; 80053; 83880; 84484; 85025; 93005; 99285

== ENCOUNTER 2021-11-14 00:24 | Inpatient (IN) | payer MEDICARE, MEDICAID ==
[2021-11-13 23:00] VITALS: BP 138/84
[~2021-11-14] VITALS: Ht 165.1 cm; Wt 67.1 kg
[~2021-11-14 00:24] MED LIST changes: +TOPUD PO
[2021-11-14 01:13] LABS: BASOPHILS % 0.7 % (0.0-2.0); EOSINOPHILS % 4.6 % (0.0-5.0); HEMATOCRIT. 38.4 % (36.0-48.0); HEMOGLOBIN. 12.6 g/dL (12.0-16.0); LYMPHOCYTES % 21.7 % (20.0-50.0); MEAN CORPUSCULAR HEMOGLOBIN 31.7 pg (28.0-32.0); MEAN CORPUSCULAR VOLUME 96.7 fL (81.0-99.0); MEAN PLATELET VOLUME 8.3 fl (7.4-10.4); MONOCYTES % 8.5 % (2.0-8.0); NEUTROPHILS % 64.5 % (40.0-76.0); PLATELET 172 x1000/uL (130-400); RED BLOOD CELL COUNT 3.97 mill/uL (4.2-5.4); RED CELL DISTRIBUTION WIDTH 14.4 % (11.6-14.6)
[2021-11-14 01:21] LABS: CHLORIDE 111 mEq/L (98-107)
[2021-11-14 01:25] LABS: ETHANOL BLOOD < 10 mg/dL
[2021-11-14 02:09] LABS: CLARITY URINE CLOUDY (CLEAR); COLOR URINE YELLOW (YELLOW); KETONES URINE TRACE (NEGATIVE); LEUKOCYTE ESTERASE URINE 1+ (NEGATIVE); NITRITE URINE NEGATIVE (NEGATIVE); OCCULT BLOOD URINE NEGATIVE (NEGATIVE); PROTEIN URINE 1+ (NEGATIVE); SPECIFIC GRAVITY URINE 1.037 (1.005-1.030)
[2021-11-14 02:20] LABS: *AMPHETAMINES SCREEN URINE NEGATIVE (NEGATIVE); *BARBITURATES SCREEN URINE NEGATIVE (NEGATIVE); *BENZODIAZEPINES SCREEN URINE NEGATIVE (NEGATIVE); *COCAINE SCREEN URINE NEGATIVE (NEGATIVE)
[2021-11-14 02:21] LABS: CANNABINOID URINE SCREEN NEGATIVE (NEGATIVE); METHADONE URINE SCREEN NEGATIVE (NEGATIVE); OPIATES URINE SCREEN NEGATIVE (NEGATIVE); PHENCYCLIDINE URINE SCREEN NEGATIVE (NEGATIVE)
[2021-11-14] MEDS ORDERED: CEPHALEXIN 250MG CAPSULE PO SCH (03:00)
[2021-11-14] MEDS ORDERED: DOCUSATE SODIUM 100MG CAPSULE PO PRN (10:45)
[2021-11-14] MEDS ORDERED: ACETAMINOPHEN 325MG TABLET PO PRN ×2 (10:45)
[2021-11-14] MEDS ORDERED: ONDANSETRON HCL 4MG/2ML INJ IV PRN (10:45)
[2021-11-14] MEDS ORDERED: CLONIDINE 0.1MG TABLET PO PRN (10:45)
[2021-11-14] MEDS ORDERED: IPRATROPIUM/ALBUTEROL 0.5-3(2.5)MG/3ML NEB HHN PRN (10:45)
[2021-11-14] MEDS ORDERED: LORAZEPAM 0.5MG TABLET PO PRN (10:45)
[2021-11-14 11:00] VITALS: BP 131/75
[2021-11-14 12:00] VITALS: BP 131/75
[2021-11-14] MEDS ORDERED: CEFTRIAXONE 1 G PREMIX 50 ML IV SCH (14:30)
[2021-11-14 16:00] VITALS: BP 139/88
[2021-11-14] MEDS: CEFTRIAXONE 1,000 MG in DEXTROSE 5% WATER 50 ML IV SCH (16:00)
[2021-11-14 20:00] VITALS: BP 151/77
[2021-11-14] MEDS: RISPERIDONE 0.5MG TABLET PO SCH ×2 (21:00→21:21)
[2021-11-14 22:00] VITALS: BP 138/84
[2021-11-15] MEDS ORDERED: *PATIENT'S OWN MEDICATION STORAGE XX SCH (06:45)
[2021-11-15 07:31] LABS: CHLORIDE 109 mEq/L (98-107)
[2021-11-15 08:00] VITALS: BP 123/74
[2021-11-15] MEDS: RISPERIDONE 0.5MG TABLET PO SCH ×2 (09:00→21:44)
[2021-11-15] MEDS: CEFTRIAXONE 1,000 MG in DEXTROSE 5% WATER 50 ML IV SCH (16:00)
[2021-11-15 20:00] VITALS: BP 130/73
[2021-11-16] VITALS: BP 120/73
[2021-11-16 04:00] VITALS: BP 106/73
[2021-11-16 08:00] VITALS: BP 100/58
[2021-11-16] MEDS: RISPERIDONE 0.5MG TABLET PO SCH ×2 (09:04→21:52)
[2021-11-16 12:00] VITALS: BP_SYST 112; BP_DIAS 64; BP_DIAS 75
[2021-11-16 16:00] VITALS: BP 110/70
[2021-11-16] MEDS ORDERED: RISPERIDONE 0.5MG TABLET PO SCH (17:00)
[2021-11-16 20:00] VITALS: BP 100/59
[2021-11-17] VITALS: BP 99/63
[2021-11-17 04:00] VITALS: BP 123/66
[2021-11-17 08:00] VITALS: BP 108/61
[2021-11-17] MEDS: RISPERIDONE 0.5MG TABLET PO SCH ×2 (08:40→22:22)
[2021-11-17] MEDS: HYDROCODONE/ACETAMINOPHEN 5/325MG TABLET PO PRN ×2 (08:56→22:22)
[2021-11-17] MEDS: ASPIRIN 81MG EC TABLET PO SCH (11:45)
[2021-11-17 12:00] VITALS: BP 98/51
[2021-11-17 16:00] VITALS: BP 112/63
[2021-11-17 20:00] VITALS: BP 116/62
[2021-11-18] VITALS: BP 118/59
[2021-11-18 04:00] VITALS: BP 113/85
[2021-11-18 08:00] VITALS: BP 132/92
[2021-11-18] MEDS: ASPIRIN 81MG EC TABLET PO SCH (09:00)
[2021-11-18 16:47] LABS: BASOPHILS % 0.4 % (0.0-2.0); EOSINOPHILS % 1.5 % (0.0-5.0); HEMATOCRIT. 43.2 % (36.0-48.0); HEMOGLOBIN. 13.6 g/dL (12.0-16.0); LYMPHOCYTES % 18.4 % (20.0-50.0); MEAN CORPUSCULAR HEMOGLOBIN 31.3 pg (28.0-32.0); MEAN CORPUSCULAR VOLUME 99.4 fL (81.0-99.0); MEAN PLATELET VOLUME 9.2 fl (7.4-10.4); NEUTROPHILS % 68.7 % (40.0-76.0); PLATELET 168 x1000/uL (130-400); RED BLOOD CELL COUNT 4.35 mill/uL (4.2-5.4); RED CELL DISTRIBUTION WIDTH 15.2 % (11.6-14.6)
[2021-11-18 16:56] LABS: CHLORIDE 105 mEq/L (98-107)
[2021-11-18 17:04] LABS: HDL CHOLESTEROL 52 mg/dL (40-59)
[2021-11-18 17:07] LABS: LDL CHOLESTEROL 71 mg/dL (5-100)
[2021-11-18] MEDS ORDERED: MIRTAZAPINE 15MG TABLET PO SCH (21:00)
[2021-11-18] MEDS: RISPERIDONE 0.5MG TABLET PO SCH (21:00)
[2021-11-19 07:55] LABS: BASOPHILS % 0.6 % (0.0-2.0); EOSINOPHILS % 2.6 % (0.0-5.0); HEMATOCRIT. 42.2 % (36.0-48.0); LYMPHOCYTES % 23.6 % (20.0-50.0); MEAN CORPUSCULAR HEMOGLOBIN 31.6 pg (28.0-32.0); MEAN CORPUSCULAR VOLUME 95.1 fL (81.0-99.0); MEAN PLATELET VOLUME 9.1 fl (7.4-10.4); NEUTROPHILS % 61.2 % (40.0-76.0); PLATELET 190 x1000/uL (130-400); RED BLOOD CELL COUNT 4.44 mill/uL (4.2-5.4); RED CELL DISTRIBUTION WIDTH 14.4 % (11.6-14.6)
[2021-11-19 08:00] VITALS: BP 102/58
[2021-11-19 08:37] LABS: CHLORIDE 105 mEq/L (98-107)
[2021-11-19] MEDS ORDERED: RISP05 PO (09:20)
[2021-11-19] MEDS ORDERED: MIRT-89 PO (09:20)
[2021-11-19 09:43] VITALS: BP_SYST 102; BP_SYST 108; BP_DIAS 58; BP_DIAS 87
[2021-11-19] MEDS: ASPIRIN 81MG EC TABLET PO SCH (09:50)
[2021-11-19] MEDS: RISPERIDONE 0.5MG TABLET PO SCH (09:50)
[2021-11-19 12:00] VITALS: BP 98/66
[2021-11-19 16:00] VITALS: BP 108/87
== END 2021-11-19 17:15 | disposition home or self-care (01) | DRG 52 ==
LOC: ER 00:24 → 6EST 04:23 → CANRESERV 08:46 → ENRESERV 08:46 → 7EST 20:48
PROVIDERS: ADMIT Internal Medicine; ATTEND Internal Medicine
DX: G93.40 Encephalopathy, unspecified (principal); I27.21 Secondary pulmonary arterial hypertension; F03.90 Unspecified dementia, unspecified severity, without behavioral disturbance, psychotic disturbance, mood disturbance, and anxiety; N39.0 Urinary tract infection, site not specified; R62.7 Adult failure to thrive; I08.3 Combined rheumatic disorders of mitral, aortic and tricuspid valves; F20.9 Schizophrenia, unspecified; I10 Essential (primary) hypertension; R07.89 Other chest pain; F31.9 Bipolar disorder, unspecified; R53.81 Other malaise; Z78.1 Physical restraint status; Z79.899 Other long term (current) drug therapy; Z68.24 Body mass index [BMI] 24.0-24.9, adult
CPT/HCPCS: 36415; 80048; 80053; 80061; 80305; 80307; 80320; 80329; 81003; 84443; 84484; 85025; 93005; 93306; 99285; C1893; J0696; J7060; G0480

== ENCOUNTER 2022-12-22 22:19 | Emergency (ER) | payer MEDICARE, MEDICAID ==
[~2022-12-22] VITALS: Ht 160 cm; Wt 56.0 kg
[~2022-12-22 22:19] MED LIST changes: -CEPH500C2 MT; +MIRT-89 PO; -MOM MT; +NITR-87 MT; -SULF1TAB44 PO; -TOPUD PO; -TRAM50TA3 MT
[2022-12-22] MEDS ORDERED: ACETAMINOPHEN 325MG TABLET PO STA (22:52)
[2022-12-22 23:19] LABS: BASOPHILS % 0.6 % (0.0-2.0); EOSINOPHILS % 2.8 % (0.0-5.0); HEMATOCRIT. 37.2 % (36.0-48.0); HEMOGLOBIN. 12.1 g/dL (12.0-16.0); LYMPHOCYTES % 20.7 % (20.0-50.0); MEAN CORPUSCULAR HEMOGLOBIN 31.9 pg (28.0-32.0); MEAN CORPUSCULAR VOLUME 98.3 fL (81.0-99.0); MONOCYTES % 11.7 % (2.0-8.0); NEUTROPHILS % 64.2 % (40.0-76.0); PLATELET 206 x1000/uL (130-400); RED BLOOD CELL COUNT 3.78 mill/uL (4.2-5.4); RED CELL DISTRIBUTION WIDTH 15.9 % (11.6-14.6)
[2022-12-22 23:31] LABS: CHLORIDE 112 mEq/L (98-107)
[2022-12-23] MEDS ORDERED: TOPUD MT (03:17)
[2022-12-23 05:15] VITALS: BP 123/78
== END 2022-12-23 13:15 | disposition home or self-care (01) ==
LOC: ER 22:19
DX: M79.10 Myalgia, unspecified site (principal); R07.89 Other chest pain; I48.91 Unspecified atrial fibrillation; I11.0 Hypertensive heart disease with heart failure; I50.9 Heart failure, unspecified; F31.9 Bipolar disorder, unspecified; F03.90 Unspecified dementia, unspecified severity, without behavioral disturbance, psychotic disturbance, mood disturbance, and anxiety
CPT/HCPCS: 36415; 71045; 80053; 83880; 84484; 85025; 93005; 99285

== ENCOUNTER 2022-12-30 06:33 | Emergency (ER) | payer MEDICARE, MEDICAID ==
[~2022-12-30] VITALS: Ht 167.6 cm; Wt 60.0 kg
[~2022-12-30 06:33] MED LIST changes: +TOPUD MT
[2022-12-30 06:35] VITALS: BP 131/97
[2022-12-30] MEDS ORDERED: ACETAMINOPHEN 325MG TABLET PO STA (07:47)
[2022-12-30] MEDS ORDERED: ACET325C7 PO (08:45)
== END 2022-12-30 12:05 | disposition home or self-care (01) ==
LOC: ER 06:33
DX: M79.18 Myalgia, other site (principal); E11.9 Type 2 diabetes mellitus without complications; I11.0 Hypertensive heart disease with heart failure; I50.9 Heart failure, unspecified; Z88.0 Allergy status to penicillin; Z79.899 Other long term (current) drug therapy
CPT/HCPCS: 71045; 99283

== ENCOUNTER 2023-01-16 15:38 | Emergency (ER) | payer MEDICARE, MEDICAID ==
[~2023-01-16] VITALS: Ht 165.1 cm; Wt 55.0 kg
[~2023-01-16 15:38] MED LIST changes: +ACET325C7 PO
[2023-01-16 15:42] VITALS: O2SAT 99
[2023-01-16 17:22] LABS: BASOPHILS % 0.5 % (0.0-2.0); EOSINOPHILS % 1.4 % (0.0-5.0); HEMATOCRIT. 35.8 % (36.0-48.0); HEMOGLOBIN. 11.9 g/dL (12.0-16.0); MEAN CORPUSCULAR HEMOGLOBIN 32.6 pg (28.0-32.0); MEAN CORPUSCULAR VOLUME 98.5 fL (81.0-99.0); MONOCYTES % 11.1 % (2.0-8.0); PLATELET 197 x1000/uL (130-400); RED BLOOD CELL COUNT 3.63 mill/uL (4.2-5.4); RED CELL DISTRIBUTION WIDTH 16.9 % (11.6-14.6)
[2023-01-16] MEDS ORDERED: ACETAMINOPHEN 325MG TABLET PO ONE (17:45)
[2023-01-16] MEDS ORDERED: LIDOCAINE 5% PATCH TOP SCH (17:45)
[2023-01-16] MEDS ORDERED: IBUPROFEN 400MG TABLET PO ONE (17:45)
[2023-01-16 17:49] LABS: CHLORIDE 114 mEq/L (98-107)
[2023-01-16 18:16] LABS: CLARITY URINE CLEAR (CLEAR); COLOR URINE YELLOW (YELLOW); KETONES URINE NEGATIVE (NEGATIVE); LEUKOCYTE ESTERASE URINE 1+ (NEGATIVE); NITRITE URINE NEGATIVE (NEGATIVE); OCCULT BLOOD URINE 1+ (NEGATIVE); PROTEIN URINE 1+ (NEGATIVE); SPECIFIC GRAVITY URINE 1.022 (1.005-1.030)
[2023-01-16] MEDS ORDERED: CEFP200T13 MT (18:44)
[2023-01-16] MEDS ORDERED: CEFTRIAXONE SODIUM 1 G/VIAL IM ONE (18:45)
[2023-01-16 20:29] VITALS: BP 124/77; PULSE 75; RESP 16; TEMP 98.5
== END 2023-01-16 20:29 | disposition home or self-care (01) ==
LOC: ER 16:38
DX: N39.0 Urinary tract infection, site not specified (principal); R07.89 Other chest pain; I11.0 Hypertensive heart disease with heart failure; I50.9 Heart failure, unspecified; I48.91 Unspecified atrial fibrillation; E11.9 Type 2 diabetes mellitus without complications; Z88.0 Allergy status to penicillin; Z79.899 Other long term (current) drug therapy
CPT/HCPCS: 36415; 71045; 73030; 80053; 81003; 83880; 84484; 85025; 93005; 99285

== ENCOUNTER 2023-03-12 00:12 | Emergency (ER) | payer MEDICARE, MEDICAID ==
[~2023-03-12] VITALS: Ht 170.2 cm; Wt 60.0 kg
[~2023-03-12 00:12] MED LIST changes: -ACET325C7 PO; -NITR-87 MT; +SULF1TAB48 MT; -TOPUD MT
[2023-03-12 00:18] VITALS: BP 138/80; PULSE 75; RESP 20; TEMP 98.4; O2SAT 98
[2023-03-12 02:16] LABS: EOSINOPHILS % 4.2 % (0.0-5.0); HEMOGLOBIN. 11.4 g/dL (12.0-16.0); LYMPHOCYTES % 29.8 % (20.0-50.0); MEAN CORPUSCULAR HEMOGLOBIN 32.9 pg (28.0-32.0); MEAN CORPUSCULAR HGB CONC 33.4 g/dL (31.0-37.0); MEAN CORPUSCULAR VOLUME 98.7 fL (81.0-99.0); MEAN PLATELET VOLUME 8.6 fl (7.4-10.4); MONOCYTES % 11.4 % (2.0-8.0); NEUTROPHILS % 53.6 % (40.0-76.0); PLATELET 180 x1000/uL (130-400); RED BLOOD CELL COUNT 3.45 mill/uL (4.2-5.4); WHITE BLOOD COUNT 3.8 x1000/uL (4.5-11.0)
[2023-03-12 02:25] LABS: CHLORIDE 113 mEq/L (98-107); INDEX HEMOLYSI 1 (1-3); INDEX ICTERIC 1 (1-4); INDEX LIPEMIC 1 (1-3); POTASSIUM 4.5 mEq/L (3.5-5.1); SODIUM 141 mEq/L (136-145)
[2023-03-12 02:35] LABS: ALANINE AMINOTRANSFERASE 20 IU/L (13-61); ALBUMIN 3.5 g/dL (3.4-5.0); ASPARTATE AMINOTRANSFERASE 16 IU/L (15-37); BILIRUBIN TOTAL 0.4 mg/dL (0.1-1.0); CALCIUM 10.1 mg/dL (8.5-10.1); CARBON DIOXIDE 23 mEq/L (21-32); CREATININE 0.8 mg/dL (0.6-1.3); GLUCOSE 76 mg/dL (70-105); NT PRO B-TYPE NATRIURETIC PEP 128 pg/mL (5-125); PROTEIN TOTAL 6.9 g/dL (6.0-8.3); TROPONIN I HIGH SENSITIVITY 8 ng/L (<54); UREA NITROGEN BLOOD 24 mg/dL (7-21)
== END 2023-03-12 08:24 | disposition left against medical advice (07) ==
LOC: ER 00:12 → CANBEDREQ 03-13
DX: R07.89 Other chest pain (principal); I48.91 Unspecified atrial fibrillation; I11.0 Hypertensive heart disease with heart failure; I50.9 Heart failure, unspecified; F03.90 Unspecified dementia, unspecified severity, without behavioral disturbance, psychotic disturbance, mood disturbance, and anxiety; E11.9 Type 2 diabetes mellitus without complications; F31.9 Bipolar disorder, unspecified; Z79.899 Other long term (current) drug therapy
CPT/HCPCS: 36415; 71045; 80053; 83880; 84484; 85025; 99284

== ENCOUNTER 2023-05-08 06:00 | Emergency (ER) | payer MEDICARE, MEDICAID ==
[~2023-05-08] VITALS: Ht 160 cm; Wt 45.0 kg
[2023-05-08 06:05] VITALS: BP 148/96; PULSE 98; RESP 16; TEMP 98.2; O2SAT 96
[2023-05-08 07:57] LABS: BASOPHILS % 0.8 % (0.0-2.0); EOSINOPHILS % 2.2 % (0.0-5.0); HEMATOCRIT. 39.4 % (36.0-48.0); HEMOGLOBIN. 12.9 g/dL (12.0-16.0); LYMPHOCYTES % 25.8 % (20.0-50.0); MEAN CORPUSCULAR HEMOGLOBIN 32.4 pg (28.0-32.0); MEAN CORPUSCULAR HGB CONC 32.7 g/dL (31.0-37.0); MEAN PLATELET VOLUME 8.3 fl (7.4-10.4); MONOCYTES % 12.1 % (2.0-8.0); NEUTROPHILS % 59.1 % (40.0-76.0); PLATELET 208 x1000/uL (130-400); RED BLOOD CELL COUNT 3.98 mill/uL (4.2-5.4); RED CELL DISTRIBUTION WIDTH 15.4 % (11.6-14.6); WHITE BLOOD COUNT 4.3 x1000/uL (4.5-11.0)
[2023-05-08 07:59] LABS: CHLORIDE 107 mEq/L (98-107); INDEX HEMOLYSI 1 (1-3); INDEX ICTERIC 1 (1-4); INDEX LIPEMIC 1 (1-3); POTASSIUM 4.6 mEq/L (3.5-5.1); SODIUM 136 mEq/L (136-145); UREA NITROGEN BLOOD 30 mg/dL (7-21)
[2023-05-08 08:07] LABS: ALANINE AMINOTRANSFERASE 19 IU/L (13-61); ALBUMIN 4.2 g/dL (3.4-5.0); ASPARTATE AMINOTRANSFERASE 19 IU/L (15-37); BILIRUBIN TOTAL 0.4 mg/dL (0.1-1.0); CARBON DIOXIDE 27 mEq/L (21-32); CREATININE 1.3 mg/dL (0.6-1.3); GLUCOSE 97 mg/dL (70-105); NT PRO B-TYPE NATRIURETIC PEP 60 pg/mL (5-125); TROPONIN I HIGH SENSITIVITY 6 ng/L (<54)
== END 2023-05-08 10:52 | disposition home or self-care (01) ==
LOC: ER 06:00
DX: M19.012 Primary osteoarthritis, left shoulder (principal); M19.011 Primary osteoarthritis, right shoulder; E11.9 Type 2 diabetes mellitus without complications; I11.0 Hypertensive heart disease with heart failure; I50.9 Heart failure, unspecified; Z88.0 Allergy status to penicillin; Z88.5 Allergy status to narcotic agent; Z79.899 Other long term (current) drug therapy
CPT/HCPCS: 36415; 80053; 83880; 84484; 85025; 99283

== ENCOUNTER 2023-08-13 17:20 | Emergency (ER) | payer MEDICARE, MEDICAID ==
[~2023-08-13] VITALS: Ht 162.6 cm; Wt 57.0 kg
[~2023-08-13 17:20] MED LIST changes: -ACET-2708 MT; -DOCU100T MT; -SULF1TAB48 MT
[2023-08-13 17:31] VITALS: O2SAT 98
[2023-08-13] MEDS ORDERED: HYDROCODONE/ACETAMINOPHEN 5/325MG TABLET PO STA (17:39)
[2023-08-13] MEDS ORDERED: ONDANSETRON 4MG ODT PO STA (17:39)
[2023-08-13] MEDS ORDERED: FAMOTIDINE 20MG TABLET PO ONE (17:45)
[2023-08-13 18:12] LABS: BASOPHILS % 0.5 % (0.0-2.0); EOSINOPHILS % 2.3 % (0.0-5.0); HEMOGLOBIN. 11.8 g/dL (12.0-16.0); LYMPHOCYTES % 25.2 % (20.0-50.0); MEAN CORPUSCULAR HEMOGLOBIN 31.4 pg (28.0-32.0); MEAN CORPUSCULAR HGB CONC 31.8 g/dL (31.0-37.0); MEAN CORPUSCULAR VOLUME 98.8 fL (81.0-99.0); MONOCYTES % 11.5 % (2.0-8.0); NEUTROPHILS % 60.5 % (40.0-76.0); PLATELET 157 x1000/uL (130-400); RED BLOOD CELL COUNT 3.74 mill/uL (4.2-5.4); RED CELL DISTRIBUTION WIDTH 14.9 % (11.6-14.6); WHITE BLOOD COUNT 3.8 x1000/uL (4.5-11.0)
[2023-08-13 18:26] LABS: ALANINE AMINOTRANSFERASE 9 IU/L (10-49); ASPARTATE AMINOTRANSFERASE 17 IU/L (<34); BILIRUBIN TOTAL 0.5 mg/dL (0.1-1.0); CALCIUM 10.9 mg/dL (8.7-10.4); CARBON DIOXIDE 25 mEq/L (21-32); CHLORIDE 109 mEq/L (98-107); CREATININE 0.8 mg/dL (0.6-1.0); GLUCOSE 90 mg/dL (70-105); POTASSIUM 4.8 mEq/L (3.5-5.1); PROTEIN TOTAL 7.2 g/dL (6.0-8.3); PROTHROMBIN TIME 11.1 sec (9.6-11.0); SODIUM 139 mEq/L (136-145); TROPONIN I HIGH SENSITIVITY 4 ng/L (3.0-34); UREA NITROGEN BLOOD 26 mg/dL (9-23)
[2023-08-13] MEDS ORDERED: TOPUD MT (20:30)
[2023-08-13] MEDS ORDERED: SENN-257 MT (20:30)
[2023-08-13] MEDS ORDERED: SENN-371 MT (20:30)
[2023-08-13] MEDS ORDERED: NITR-87 MT (23:22)
[2023-08-14 00:10] VITALS: BP 148/88; PULSE 84; RESP 17; TEMP 98.3
== END 2023-08-14 00:11 | disposition home or self-care (01) ==
LOC: ER 17:20
DX: R10.9 Unspecified abdominal pain (principal); K59.00 Constipation, unspecified; I11.0 Hypertensive heart disease with heart failure; I50.9 Heart failure, unspecified; I48.91 Unspecified atrial fibrillation; F31.9 Bipolar disorder, unspecified; F03.90 Unspecified dementia, unspecified severity, without behavioral disturbance, psychotic disturbance, mood disturbance, and anxiety; E11.9 Type 2 diabetes mellitus without complications; Z79.899 Other long term (current) drug therapy
CPT/HCPCS: 99284; 74176; 80053; 83690; 85025; 85610; 84484; 36415; Q0162

== ENCOUNTER 2023-08-20 22:48 | Emergency (ER) | payer MEDICARE, MEDICAID ==
[~2023-08-20] VITALS: Ht 160 cm; Wt 69.0 kg
[~2023-08-20 22:48] MED LIST changes: +NITR-87 MT; -SENN-257 MT; +SENN-371 MT; +TOPUD MT
[2023-08-20 22:54] VITALS: O2SAT 98
[2023-08-21] MEDS ORDERED: ACETAMINOPHEN 325MG TABLET PO NR (05:45)
[2023-08-21 10:52] VITALS: BP 134/82; PULSE 88; RESP 16; TEMP 98.6
== END 2023-08-21 10:49 | disposition left against medical advice (07) ==
LOC: ER 22:48
DX: R07.89 Other chest pain (principal); I48.91 Unspecified atrial fibrillation; I11.0 Hypertensive heart disease with heart failure; F03.90 Unspecified dementia, unspecified severity, without behavioral disturbance, psychotic disturbance, mood disturbance, and anxiety; E11.9 Type 2 diabetes mellitus without complications; F31.9 Bipolar disorder, unspecified; Z79.899 Other long term (current) drug therapy
CPT/HCPCS: 71045; 93005; 99283